=== PATIENT | female | born 1985 | race Asian ===

== ENCOUNTER 2019-09-09 10:55 | Emergency (ER) | payer BC, MEDICAID ==
[2019-09-09] MEDS ORDERED: Sodium Chloride 0.9% 10 ML Syringe FLUSH PRN (11:04)
[2019-09-09 11:40] LABS: ANION GAP 13.4; CHLORIDE,CL 102 mmol/L (101-111); SODIUM,NA 133 mmol/L (135-145)
--- NOTE | 2019-09-09 12:18 | EDM.PDOC ---
Scribed by Michelle Desai 09/09/19 1217 for Donny Kwon, [facility] ED HPI GENERAL MEDICAL PROBLEM - General Chief Complaint: Neuro Symptoms/Deficits Stated Complaint: AMBULANCE Time Seen by Provider: 09/09/19 11:03 Source of Information: Reports: Patient, EMS Notes Reviewed, RN, RN Notes Reviewed History Limitations: Reports: No Limitations - History of Present Illness INITIAL COMMENTS - FREE TEXT/NARRATIVE: Patient is a 34-year-old female brought in by EMS for slurred speech and left facial droop 1.5 hour ago. Patient reports that she was driving. Denies having any medical problems. She is not on any medications at this time. She reports she is breast feeding. She took an Excedrin migraine 1 hour before ER visit. She states that she was not feeling right. [place] were [place] the [facility], but she was in the car with the kids. BS 104. NIH scale 9 Onset: Today Severity: Severe Improves with: Reports: None Worsens with: Reports: None Associated Symptoms: Reports: No Other Symptoms - Related Data Allergies Allergy/AdvReac Type Severity Reaction Status Date / Time acetaminophen Allergy Other Verified 09/09/19 11:36 [From Excedrin Back and Body] aspirin Allergy Other Verified 09/09/19 11:36 [From Excedrin Back and Body] calcium carbonate Allergy Other Verified 09/09/19 11:36 [From Excedrin Back and Body] Home Meds: Home Meds . [No Known Home Meds] 09/09/19 [History] ED ROS GENERAL - Review of Systems Review Of Systems: Comprehensive ROS is negative, except as noted in HPI. ED EXAM, GENERAL - Physical Exam Exam: See Below Exam Limited By: Physical Impairment General Appearance: Alert Eye Exam: Bilateral Eye: EOMI, Normal Inspection, PERRL Ears: Normal External Exam, Normal Canal, Hearing Grossly Normal, Normal TMs Nose: Normal Inspection, Normal Mucosa, No Blood Throat/Mouth: Other (left side facial droop with slurred speech. ) Head: Atraumatic, Normocephalic Neck: Normal Inspection, Supple, Non-Tender, Full Range of Motion Respiratory/Chest: No Respiratory Distress, Lungs Clear, Normal Breath Sounds, No Accessory Muscle Use, Chest Non-Tender Cardiovascular: Normal Peripheral Pulses, Regular Rate, Rhythm, No Edema, No Gallop, No JVD, No Murmur, No Rub Peripheral Pulses: 3+: Radial (L), Radial (R), Posterior Tibial (L), Posterior Tibial (R), Dorsalis Pedis (L), Dorsalis Pedis (R) GI/Abdominal: Normal Bowel Sounds, Soft, Non-Tender, No Organomegaly, No Distention, No Abnormal Bruit, No Mass (Female) Exam: Deferred Rectal (Female) Exam: Deferred Back Exam: Normal Inspection Extremities: Normal Inspection, Normal Range of Motion, Non-Tender, No Pedal Edema, Normal Capillary Refill, Other (left arm weakness on presentation, but resolved during reassessment. ) Neurological: Alert, Oriented, CN II-XII Intact, Normal Cognition Psychiatric: Tearful Skin Exam: Warm, Dry, Intact, Normal Color, No Rash Lymphatic: No Adenopathy EKG INTERPRETATION EKG Date: 09/09/19 Time: 11:16 Rhythm: Other (sinus rhythm) Rate (Beats/Min): 95 EKG Interpretation Comments: Borderline Q waves in inferior leads. Inferior Q waves, probably normal variation Course - Vital Signs Last Recorded V/S: Last Vital Signs Temp 98.5 F 09/09/19 11:22 Pulse 82 09/09/19 11:22 Resp 16 09/09/19 11:22 BP 138/84 09/09/19 11:22 Pulse Ox 99 09/09/19 11:22 - Orders/Labs/Meds Orders: Active Orders 24 hr Category Date Time Status Assess Neurological Status [RC] CONTINUOUS Care 09/09/19 11:06 Ordered Blood Glucose Check, Bedside [RC] STAT Care 09/09/19 11:06 Ordered Cardiac Monitoring [RC] CONTINUOUS Care 09/09/19 11:06 Ordered Communication Order [RC] STAT Care 09/09/19 11:06 Ordered EKG Documentation Completion [RC] STAT Care 09/09/19 11:21 Active Height and Weight [RC] UPON Care 09/09/19 11:06 Ordered NIH Stroke Scale [RC] Q15M Care 09/09/19 11:06 Ordered NIH Stroke Scale [RC] STAT Care 09/09/19 11:06 Ordered Nursing Bedside Swallow Screen [RC] STAT Care 09/09/19 11:06 Ordered Oxygen Therapy, ED [RC] ASDIRECTED Care 09/09/19 11:06 Ordered Peripheral IV Care [RC] . DIRECTED Care 09/09/19 11:07 Ordered Vital Signs [RC] Q15M Care 09/09/19 11:06 Ordered Sodium Chloride 0.9% [Saline Flush] Med 09/09/19 11:04 Ordered 10 ml FLUSH ASDIRECTED PRN Peripheral IV Insertion Adult [OM.PC] Stat Oth 09/09/19 11:06 Ordered Peripheral IV Insertion Adult [OM.PC] Stat Ot 09/09/19 11:06 Ordered Medication Orders Sodium Chloride (Saline Flush) 10 ml FLUSH ASDIRECTED PRN PRN Reason: Keep Vein Open Last Admin: 09/09/19 11:31 Dose: 10 ml Labs: Laboratory Tests 09/09/19 09/09/19 09/09/19 Range/Units 11:14 11:14 11:14 WBC 7.8 (5.0-10.0) 10^3/uL RBC 4.69 (4.2-5.4) 10^6/uL Hgb 13.7 (12.0-16.0) g/dL Hct 40.5 (37.0-47.0) % MCV 86.4 (80-100) fL MCH 29.2 (27.0-34.0) pg MCHC 33.8 (33.0-35.0) g/dL Plt Count 236 (150-450) 10^3/uL Neut % (Auto) 66.5 (42.2-75.2) % Lymph % (Auto) 26.4 (20.5-50.1) % Rush % (Auto) 5.8 (2-8) % Eos % (Auto) 1.0 (1.0-3.0) % Baso % (Auto) 0.3 (0.0-1.0) % PT 9.2 (9.0-12.0) SEC INR 0.9 (0.9-1.2) APTT 28.0 (22.0-34.0) SEC Sodium 133 L (135-145) mmol/L Potassium 3.4 L (3.6-5.0) mmol/L Chloride 102 (101-111) mmol/L Carbon Dioxide 21.0 (21.0-31.0) mmol/L Anion Gap 13.4 BUN 12 (7-18) mg/dL Creatinine 0.6 (0.6-1.3) mg/dL Est Cr Clr Drug Dosing 94.00 mL/min Estimated GFR (MDRD) > 60 BUN/Creatinine Ratio 20.00 Glucose 105 (74-105) mg/dL Calcium 8.9 (8.4-10.2) mg/dl Total Bilirubin 0.6 (0.2-1.0) mg/dL AST 19 (10-42) IU/L ALT 22 (10-60) IU/L Alkaline Phosphatase 71 (42-121) IU/L Troponin I 0.02 (0.00-0.02) ng/ml Total Protein 8.0 (6.7-8.2) g/dl Albumin 4.3 (3.2-5.5) g/dl Globulin 3.7 Albumin/Globulin Ratio 1.16 Meds: Medications Generic Name Dose Route Start Last Admin Trade Name Freq PRN Reason Stop Dose Admin Sodium Chloride 10 ml 09/09/19 11:04 09/09/19 11:31 Saline Flush FLUSH 10 ml ASDIRECTED PRN Administration Keep Vein Open - Radiology Interpretation Free Text/Narrative:: Head CT: No acute intracranial abnormality. See rad report. - Re-Assessments/Exams Free Text/Narrative Re-Assessment/Exam: A 34-year-odl female who presents to the ER with left facial droop, right hand weakness and slurred speech. NIH scale was 9. Last known well was 1 hour 30 minutes prior to admission. Left arm weakness resolved on reassessment. NIH scale 3. TPA not administered. [facility] in [facility] was called and patient was accepted by Dr. Gottlieb. Patient transferred by fixed wing. Departure - Departure Time of Disposition: 12:11 Disposition: DC/Tfer to Acute Hospital 02 Condition: Good Clinical Impression: Slurred speech, Facial droop, Right arm weakness - Discharge Information Forms: ED Department Discharge, Interfacility Transfer EMTALA Sepsis Event Note - Focused Exam Vital Signs: Vital Signs Temp Pulse Resp BP Pulse Ox 09/09/19 11:22 98.5 F 82 16 138/84 99 Date Exam was Performed: 09/09/19 Time Exam was Performed: 12:14 - My Orders Last 24 Hours: My Active Orders 09/09/19 11:04 Sodium Chloride 0.9% [Saline Flush] 10 ml FLUSH ASDIRECTED PRN 09/09/19 11:06 Assess Neurological Status [RC] CONTINUOUS Blood Glucose Check, Bedside [RC] STAT Cardiac Monitoring [RC] CONTINUOUS Communication Order [RC] STAT Height and Weight [RC] UPON NIH Stroke Scale [RC] Q15M NIH Stroke Scale [RC] STAT Nursing Bedside Swallow Screen [RC] STAT Oxygen Therapy, ED [RC] ASDIRECTED Vital Signs [RC] Q15M Peripheral IV Insertion Adult [OM.PC] Stat Peripheral IV Insertion Adult [OM.PC] Stat 09/09/19 11:07 Peripheral IV Care [RC] . DIRECTED 09/09/19 11:21 EKG Documentation Completion [RC] STAT - Assessment/Plan Last 24 Hours: My Active Orders 09/09/19 11:04 Sodium Chloride 0.9% [Saline Flush] 10 ml FLUSH ASDIRECTED PRN 09/09/19 11:06 Assess Neurological Status [RC] CONTINUOUS Blood Glucose Check, Bedside [RC] STAT Cardiac Monitoring [RC] CONTINUOUS Communication Order [RC] STAT Height and Weight [RC] UPON NIH Stroke Scale [RC] Q15M NIH Stroke Scale [RC] STAT Nursing Bedside Swallow Screen [RC] STAT Oxygen Therapy, ED [RC] ASDIRECTED Vital Signs [RC] Q15M Peripheral IV Insertion Adult [OM.PC] Stat Peripheral IV Insertion Adult [OM.PC] Stat 09/09/19 11:07 Peripheral IV Care [RC] . DIRECTED 09/09/19 11:21 EKG Documentation Completion [RC] STAT I have read and agree with the documentation that has been completed regarding this visit. By signing this record, I attest that the documentation was completed in my physical presence and is an accurate record of the encounter.
== END 2019-09-09 13:34 ==
LOC: DL.ED 10:55
DX: R29.810 Facial weakness (principal); R47.81 Slurred speech; M62.81 Muscle weakness (generalized); Z88.8 Allergy status to other drugs, medicaments and biological substances
CPT/HCPCS: 36415; 70450; 80053; 81025; 84484; 85025; 85610; 85730; 93005; 99285-25